=== PATIENT | male | born 1945 | race Caucasian/White ===

== ENCOUNTER → 2019-04-28 | Outpatient (CLI) | payer MEDICARE, OTHER ==
[~2019-04-28] MED LIST: ALBU90OI INH; Aspirin EC81 MG PO; COQ1050 MG PO; DOXA2 PO; IRBE150; METO50; Omeprazole20 M1; SIMV10; SIMV10 PO; VIT1CAPS12 PO
== END | disposition home or self-care (01) ==
LOC: LAB SHORT 07:33 → PLD 07:33
DX: D22.5 Melanocytic nevi of trunk (principal)
CPT/HCPCS: 88305

== ENCOUNTER → 2021-09-13 | Outpatient (CLI) | payer MEDICARE, OTHER | END | disposition home or self-care (01) | LOC: LAB 14:54 → LAB SHORT 14:54 | DX: C63.2 Malignant neoplasm of scrotum (principal) | CPT/HCPCS: 88305 ==

== ENCOUNTER → 2021-09-26 | Outpatient (CLI) | payer MEDICARE, OTHER | END | disposition home or self-care (01) | LOC: LAB SHORT 13:25 → LAB 13:25 | DX: C44.41 Basal cell carcinoma of skin of scalp and neck (principal) | CPT/HCPCS: 88305 ==

== ENCOUNTER → 2021-11-06 | Outpatient (CLI) | payer MEDICARE, OTHER | END | disposition home or self-care (01) | LOC: LAB SHORT 14:56 | DX: L82.1 Other seborrheic keratosis (principal) | CPT/HCPCS: 88305 ==

== ENCOUNTER → 2022-04-18 | Outpatient (CLI) | payer MEDICARE, OTHER | END | disposition home or self-care (01) | LOC: PLD 11:01 → LAB SHORT 11:01 | DX: D22.5 Melanocytic nevi of trunk (principal) | CPT/HCPCS: 88305 ==

== ENCOUNTER 2025-07-14 11:48 | Day surgery (SDC) | payer MEDICARE, OTHER ==
[~2025-07-14] VITALS: Ht 190.5 cm; Wt 111.2 kg
[~2025-07-14 11:48] MED LIST changes: +Glycopyrrolate 0.2 MG/ML 1MLVIAL ONE; +Ondansetron HCl 2 MG / ML 2ML Vial ONE; +ePHEDrine Sulfate 50 MG/ML 1ML Injection ONE
[2025-07-14] MEDS ORDERED: Lisinopril2.5 MG (12:33)
[2025-07-14] MEDS ORDERED: HYDCHL25 (12:34)
[2025-07-14] MEDS ORDERED: MAGCIT300 (12:34)
[2025-07-14] MEDS ORDERED: Calcium Carbon500 MG (12:34)
[2025-07-14] MEDS ORDERED: SERT50 (12:34)
[2025-07-14] MEDS ORDERED: VITAMIN D310 MC4 (12:34)
[2025-07-14] MEDS ORDERED: Benzocaine Oral Spray 0.5ML UD ONE (13:24)
[2025-07-14 15:26] VITALS: BP 132/76
== END 2025-07-14 15:10 | disposition home or self-care (01) ==
LOC: ORSCSDS 11:48
PROVIDERS: Internal Medicine Gastroenterology
PROC: 0DBL8ZX Excision of Transverse Colon, Via Natural or Artificial Opening Endoscopic, Diagnostic (ICD-10-PCS; principal; 2025-07-14 13:15)
PROC: 0DB58ZX Excision of Esophagus, Via Natural or Artificial Opening Endoscopic, Diagnostic (ICD-10-PCS; principal; 2025-07-14 13:15)
PROC: 0DBK8ZX Excision of Ascending Colon, Via Natural or Artificial Opening Endoscopic, Diagnostic (ICD-10-PCS; principal; 2025-07-14 13:15)
PROC: 0DB78ZX Excision of Stomach, Pylorus, Via Natural or Artificial Opening Endoscopic, Diagnostic (ICD-10-PCS; principal; 2025-07-14 13:15)
DX: K62.5 Hemorrhage of anus and rectum (principal); K21.9 Gastro-esophageal reflux disease without esophagitis; K22.70 Barrett's esophagus without dysplasia; K31.7 Polyp of stomach and duodenum; D12.2 Benign neoplasm of ascending colon; D12.3 Benign neoplasm of transverse colon; Z86.0101 Personal history of adenomatous and serrated colon polyps; Z80.0 Family history of malignant neoplasm of digestive organs; K64.4 Residual hemorrhoidal skin tags; I10 Essential (primary) hypertension; E78.5 Hyperlipidemia, unspecified; G47.33 Obstructive sleep apnea (adult) (pediatric); Z86.73 Personal history of transient ischemic attack (TIA), and cerebral infarction without residual deficits; F32.A Depression, unspecified; Z79.899 Other long term (current) drug therapy; Z79.82 Long term (current) use of aspirin
CPT/HCPCS: 88305; 88342; A9270; J0461; J2003; J2405; J2704; Q9968